=== PATIENT | female | born 1960 | race Caucasian/White ===

== ENCOUNTER 2016-08-12 11:53 | Emergency (ER) | payer OTHER ==
[~2016-08-12] VITALS: Ht 152.4 cm; Wt 52.2 kg
[~2016-08-12 11:53] MED LIST: ALBUTEROL0.09 MG/A2 IH; BACTRIM DS 8001 TA1 PO; CYCLOBENZAPRINE10 MG PO; DARVOCET N 1001 TAB PO; DIAZEPAM2 MG PO; DILANTIN100 MG PO; DONNATAL1 TAB PO; DULCOLAX5 MG PO; EES400 MG PO; FLEXERIL10 MG PO; HYDROCODONE BIT1 T11 PO; IMITREX100 MG PO; KEFLEX500 MG PO; LEVAQUIN750 M1 PO; LEVOFLOXACIN500 MG PO; MEDROL DOSEPAK4 MG PO; MIRALAX POWDER255 GM PO; MOTRIN800 MG PO; NAPROSYN500 MG PO; NORFLEX100 MG PO; PHENERGAN25 M1 PO; PHENOBARBITAL100 M1 PO; PREDNICOT20 MG PO; PREDNISONE20 M1 PO; PREDNISONE20 MG PO; PROAIR HFA8.5 GM INH; PROTONIX40 MG PO; PYRIDIUM200 MG PO; SUMATRIPTAN SU100 M1 PO; TESSALON PERLE100 M1 PO; TOBREX OPHTH S2.5 ML OPH; TRAMADOL HCL50 MG PO; ULTRAM50 MG PO; VIBRAMYCIN100 MG PO; VICO75300 PO; VICODIN 5/500 505 MG PO; ZITHROMAX Z-PA250 MG PO; ZITHROMAX250 MG PO; ZOFRAN ODT4 MG SL; ZOFRAN4 MG PO; ZYRTEC10 M1 PO; ZYRTEC10 MG PO
[2016-08-12 11:57] VITALS: BP 130/85
[2016-08-12] MEDS ORDERED: PERCOCET 325 MG1 TA2 PO (12:00)
[2016-08-12] MEDS ORDERED: 'PARAFON FORTE500 M1 PO (12:46)
[2016-08-12] MEDS ORDERED: NAPROSYN500 MG PO (12:46)
== END 2016-08-12 14:37 | disposition home or self-care (01) ==
LOC: ED 11:53
DX: S30.0XXA Contusion of lower back and pelvis, initial encounter (principal); R03.0 Elevated blood-pressure reading, without diagnosis of hypertension; J45.901 Unspecified asthma with (acute) exacerbation; J44.9 Chronic obstructive pulmonary disease, unspecified; G43.909 Migraine, unspecified, not intractable, without status migrainosus; F17.200 Nicotine dependence, unspecified, uncomplicated; Z98.890 Other specified postprocedural states; Z79.899 Other long term (current) drug therapy; Z88.8 Allergy status to other drugs, medicaments and biological substances; W19.XXXA Unspecified fall, initial encounter; Y93.89 Activity, other specified; Y92.89 Other specified places as the place of occurrence of the external cause; Y99.9 Unspecified external cause status

== ENCOUNTER → 2016-09-26 | Outpatient (CLI) | payer OTHER ==
[~2016-09-26] MED LIST changes: +'PARAFON FORTE500 M1 PO; +PERCOCET 325 MG1 TA2 PO
[2016-09-26 11:12] LABS: EST GLOM FILT AFRICAN AMERICAN > 60 ml/min
== END | disposition home or self-care (01) ==
LOC: LAB 10:47 → CT 11:00
PROVIDERS: Radiology Diagnostic Radiology
DX: M54.5 Low back pain (principal); M79.605 Pain in left leg

== ENCOUNTER → 2017-03-15 | Outpatient (CLI) | payer OTHER | END | disposition home or self-care (01) | LOC: US 07:30 | DX: R74.8 Abnormal levels of other serum enzymes (principal); R79.89 Other specified abnormal findings of blood chemistry ==

== ENCOUNTER 2017-09-25 17:37 | Emergency (ER) | payer OTHER ==
[~2017-09-25] VITALS: Ht 152.4 cm; Wt 52.2 kg
[2017-09-25 17:37] VITALS: BP 132/90
[2017-09-25 18:06] LABS: BASO % 0.2 % (0.0-1.0); EOS # 0.3 10*3/uL (0.0-0.4); EOS % 2.4 % (1.0-4.0); HEMATOCRIT 37.9 % (37.0-47.0); HEMOGLOBIN 12.6 g/dl (12.0-16.0); LYMPH # 3.1 10*3/uL (1.3-4.4); LYMPH % 21.4 % (27.0-41.0); MEAN CELL VOLUME 99.2 fl (81.0-99.0); MEAN CORPUSCULAR HGB CONC 33.2 g/dl (33.0-37.0); MEAN PLATELET VOLUME 9.5 fl (9.6-12.3); MONO # 0.9 10*3/uL (0.1-1.0); MONO % 6.6 % (3.0-9.0); NEUT # 9.9 10*3/uL (2.3-7.9); NEUT % 69.1 % (47.0-73.0); PLATELET COUNT AUTOMATED 293 10*3/uL (130-400); RED BLOOD COUNT 3.82 10*6/uL (4.10-5.10); WHITE BLOOD COUNT 14.3 10*3/uL (4.8-10.8)
[2017-09-25 18:20] LABS: BILIRUBIN NEGATIVE (NEGATIVE); BLOOD NEGATIVE (NEGATIVE); CLARITY CLEAR (CLEAR); COLOR YELLOW (YELLOW); GLUCOSE NEGATIVE (NEGATIVE); KETONE NEGATIVE (NEGATIVE); LEUKO ESTERASE NEGATIVE (NEGATIVE); NITRITE NEGATIVE (NEGATIVE); PH 5.5 (5.0-9.0); UROBILINOGEN 0.2 E.U./dl (0.2-1.0)
[2017-09-25 18:21] LABS: ALBUMIN 3.1 gm/dl (3.1-4.5); ALKALINE PHOSPHATASE 97 U/L (45-117); BUN 17 mg/dl (7-24); CHLORIDE 111 mmol/L (98-107); CREATININE 0.72 mg/dL (0.55-1.02); LIPASE 116 U/L (73-393); POTASSIUM 3.7 mmol/L (3.5-5.1); SGOT/AST 5 IU/L (3-35); SGPT/ALT 17 U/L (12-78); SODIUM 142 mmol/L (136-145); TOTAL PROTEIN 6.5 gm/dL (6.4-8.2)
[2017-09-25 18:29] LABS: WBC 0-2 wbc/hpf (0-5)
[2017-09-25] MEDS ORDERED: ZOFRAN4 MG PO (19:38)
[2017-09-25] MEDS ORDERED: DICYCLOMINE HCL10 MG PO (19:38)
== END 2017-09-25 19:43 | disposition home or self-care (01) ==
LOC: ED 17:37
PROVIDERS: Nurse Practitioner Family
DX: K52.9 Noninfective gastroenteritis and colitis, unspecified (principal); R03.0 Elevated blood-pressure reading, without diagnosis of hypertension; Z88.8 Allergy status to other drugs, medicaments and biological substances; Z79.899 Other long term (current) drug therapy

== ENCOUNTER → 2017-09-29 | Outpatient (CLI) | payer OTHER ==
[~2017-09-29] MED LIST changes: +DICYCLOMINE HCL10 MG PO
== END | disposition home or self-care (01) ==
LOC: LAB 12:04
DX: K52.9 Noninfective gastroenteritis and colitis, unspecified (principal)

== ENCOUNTER 2017-11-21 09:08 | Emergency (ER) | payer OTHER ==
[~2017-11-21] VITALS: Ht 152.4 cm; Wt 52.2 kg
--- NOTE | ~2017-11-21 | EKG ---
[place], [place] ELECTROCARDIOGRAM REPORT NAME: LORIE SCHROEDER UNIT #: [id number] ROOM: DOCTOR: EPIPHANY DRAFT REPORT BIRTHDATE: [birth year] [facility] Test Date: 2017-11-21 Test Time: 09:50:23 Pat Name: LORIE SCHROEDER Department: Room: Gender: F Reshipping Clerk: : 1960 Requested By: PB MANCILLA Order Number: [id number] Reading MD: Rafy Gibbons MD Measurements Intervals [place] Rate: 85 P: 45 NC: 140 QRS: 57 QRSD: 85 T: 39 QT: 371 QTc: 442 Interpretive Statements Sinus rhythm Electronically Signed On 11-22-2017 15:36:35 PDT by Rafy Gibbons MD CM:EKGRPT:ELECTROCARDIOGRAM REPORT [id number] PB MANCILLA EPIPHANY DRAFT REPORT PB MANCILLA
[2017-11-21 09:09] VITALS: BP 161/92
[2017-11-21] MEDS ORDERED: CHLORZOXAZONE500 M2 PO (09:23)
== END 2017-11-21 10:59 | disposition home or self-care (01) ==
LOC: ED 09:08
DX: R20.2 Paresthesia of skin (principal); M25.512 Pain in left shoulder; R03.0 Elevated blood-pressure reading, without diagnosis of hypertension; Z88.8 Allergy status to other drugs, medicaments and biological substances; Z79.899 Other long term (current) drug therapy

== ENCOUNTER 2018-04-25 11:47 | Emergency (ER) | payer OTHER ==
[~2018-04-25] VITALS: Ht 152.4 cm; Wt 50.8 kg
[~2018-04-25 11:47] MED LIST changes: +CHLORZOXAZONE500 M2 PO
[2018-04-25 11:50] VITALS: BP 125/84
[2018-04-25] MEDS ORDERED: PREDNISONE50 MG PO (12:20)
[2018-04-25] MEDS ORDERED: ZITHROMAX250 MG PO (12:20)
== END 2018-04-25 13:51 | disposition home or self-care (01) ==
LOC: ED 11:47
DX: M77.9 Enthesopathy, unspecified (principal); M79.601 Pain in right arm; J20.9 Acute bronchitis, unspecified; M79.602 Pain in left arm; J44.9 Chronic obstructive pulmonary disease, unspecified; G43.909 Migraine, unspecified, not intractable, without status migrainosus; Z88.8 Allergy status to other drugs, medicaments and biological substances; Z79.899 Other long term (current) drug therapy

== ENCOUNTER 2018-12-06 12:19 | Emergency (ER) | payer OTHER ==
[~2018-12-06] VITALS: Wt 45.4 kg
[~2018-12-06 12:19] MED LIST changes: +PREDNISONE50 MG PO
[2018-12-06 12:22] VITALS: BP 121/89
[2018-12-06] MEDS ORDERED: NAPROSYN500 MG PO (13:50)
[2018-12-06] MEDS ORDERED: MEDROL DOSEPAK4 MG PO (13:50)
[2018-12-06] MEDS ORDERED: ROBAXIN500 M1 PO (13:50)
== END 2018-12-06 13:55 | disposition home or self-care (01) ==
LOC: ED 12:19
DX: S39.012A Strain of muscle, fascia and tendon of lower back, initial encounter (principal); S20.229A Contusion of unspecified back wall of thorax, initial encounter; F17.200 Nicotine dependence, unspecified, uncomplicated; Z88.8 Allergy status to other drugs, medicaments and biological substances; Z79.899 Other long term (current) drug therapy; W17.89XA Other fall from one level to another, initial encounter; Y93.89 Activity, other specified; Y92.098 Other place in other non-institutional residence as the place of occurrence of the external cause; Y99.8 Other external cause status

== ENCOUNTER 2018-12-10 06:41 | Emergency (ER) | payer OTHER ==
[~2018-12-10] VITALS: Ht 152.4 cm; Wt 44.5 kg
[~2018-12-10 06:41] MED LIST changes: +ROBAXIN500 M1 PO
[2018-12-10 06:47] VITALS: BP 166/86
== END 2018-12-10 07:54 | disposition home or self-care (01) ==
LOC: ED 06:41
DX: S80.212A Abrasion, left knee, initial encounter (principal); S80.211A Abrasion, right knee, initial encounter; R56.9 Unspecified convulsions; F17.200 Nicotine dependence, unspecified, uncomplicated; G43.909 Migraine, unspecified, not intractable, without status migrainosus; J44.9 Chronic obstructive pulmonary disease, unspecified; Z88.8 Allergy status to other drugs, medicaments and biological substances; Z79.899 Other long term (current) drug therapy; Z79.2 Long term (current) use of antibiotics; Y04.2XXA Assault by strike against or bumped into by another person, initial encounter; Y93.89 Activity, other specified; Y92.89 Other specified places as the place of occurrence of the external cause; Y99.8 Other external cause status

== ENCOUNTER 2019-01-10 13:05 | Emergency (ER) | payer OTHER ==
[~2019-01-10] VITALS: Ht 152.4 cm; Wt 40.8 kg
[2019-01-10 13:05] VITALS: BP 143/100
== END 2019-01-10 14:52 | disposition home or self-care (01) ==
LOC: ED 13:05
DX: S62.521A Displaced fracture of distal phalanx of right thumb, initial encounter for closed fracture (principal); F17.200 Nicotine dependence, unspecified, uncomplicated; Z79.899 Other long term (current) drug therapy; Z88.8 Allergy status to other drugs, medicaments and biological substances; W01.0XXA Fall on same level from slipping, tripping and stumbling without subsequent striking against object, initial encounter; Y93.89 Activity, other specified; Y92.096 Garden or yard of other non-institutional residence as the place of occurrence of the external cause; Y99.8 Other external cause status

== ENCOUNTER 2019-04-22 11:53 | Emergency (ER) | payer OTHER ==
[~2019-04-22] VITALS: Wt 47.6 kg
[2019-04-22 12:09] VITALS: BP 94/59
== END 2019-04-22 13:05 | disposition left against medical advice (07) ==
LOC: ED 11:53
DX: R05 Cough (principal); R53.83 Other fatigue; R50.9 Fever, unspecified; Z53.21 Procedure and treatment not carried out due to patient leaving prior to being seen by health care provider

== ENCOUNTER 2019-05-01 14:47 | Emergency (ER) | payer OTHER ==
[~2019-05-01] VITALS: Ht 152.4 cm; Wt 47.6 kg
[2019-05-01 14:59] VITALS: BP 134/80
== END 2019-05-01 17:35 | disposition home or self-care (01) ==
LOC: ED 14:47
DX: S60.211A Contusion of right wrist, initial encounter (principal); Z79.899 Other long term (current) drug therapy; Z88.8 Allergy status to other drugs, medicaments and biological substances; W22.8XXA Striking against or struck by other objects, initial encounter; Y93.89 Activity, other specified; Y92.89 Other specified places as the place of occurrence of the external cause; Y99.8 Other external cause status

== ENCOUNTER 2019-10-27 15:21 | Emergency (ER) | payer OTHER ==
[~2019-10-27] VITALS: Ht 152.4 cm; Wt 50.8 kg
[2019-10-27 15:35] VITALS: BP 154/91
[2019-10-27] MEDS ORDERED: IMITREX100 MG PO (15:42)
== END 2019-10-27 16:14 | disposition home or self-care (01) ==
LOC: ED 15:21
DX: Z59.9 Problem related to housing and economic circumstances, unspecified (principal); G43.909 Migraine, unspecified, not intractable, without status migrainosus; F17.200 Nicotine dependence, unspecified, uncomplicated; Z86.73 Personal history of transient ischemic attack (TIA), and cerebral infarction without residual deficits; Z88.8 Allergy status to other drugs, medicaments and biological substances; Z79.899 Other long term (current) drug therapy

== ENCOUNTER 2020-01-30 00:49 | Emergency (ER) | payer OTHER ==
[~2020-01-30] VITALS: Ht 152.4 cm; Wt 45.4 kg
[2020-01-30 00:54] VITALS: BP 159/83
== END 2020-01-30 01:54 | disposition home or self-care (01) ==
LOC: ED 00:49
DX: S61.214A Laceration without foreign body of right ring finger without damage to nail, initial encounter (principal); J44.9 Chronic obstructive pulmonary disease, unspecified; G43.909 Migraine, unspecified, not intractable, without status migrainosus; F17.200 Nicotine dependence, unspecified, uncomplicated; Z88.8 Allergy status to other drugs, medicaments and biological substances; Z79.899 Other long term (current) drug therapy; X58.XXXA Exposure to other specified factors, initial encounter; Y93.89 Activity, other specified; Y92.89 Other specified places as the place of occurrence of the external cause; Y99.8 Other external cause status

== ENCOUNTER 2020-02-05 15:08 | Emergency (ER) | payer OTHER ==
[~2020-02-05] VITALS: Ht 152.4 cm; Wt 44.5 kg
[2020-02-05 15:21] VITALS: BP 135/78
== END 2020-02-05 19:03 | disposition left against medical advice (07) ==
LOC: ED 15:08
DX: Z53.29 Procedure and treatment not carried out because of patient's decision for other reasons (principal); Z88.8 Allergy status to other drugs, medicaments and biological substances; Z79.899 Other long term (current) drug therapy

== ENCOUNTER 2020-03-12 21:31 | Emergency (ER) | payer OTHER ==
[~2020-03-12] VITALS: Ht 152.4 cm; Wt 50.3 kg
[2020-03-12 21:38] VITALS: BP 155/82
[2020-03-12] MEDS ORDERED: CEFADROXIL500 M1 PO (21:49)
[2020-03-12] MEDS ORDERED: ULTRAM50 MG PO (21:49)
[2020-03-12] MEDS ORDERED: SEPTDS PO (21:49)
== END 2020-03-12 22:13 | disposition home or self-care (01) ==
LOC: ED 21:31
DX: M79.622 Pain in left upper arm (principal); Z79.899 Other long term (current) drug therapy; Z88.8 Allergy status to other drugs, medicaments and biological substances

== ENCOUNTER → 2020-03-30 | Outpatient (CLI) | payer OTHER ==
[~2020-03-30] MED LIST changes: +CEFADROXIL500 M1 PO; +SEPTDS PO
== END | disposition home or self-care (01) ==
LOC: MAMMO 14:21
PROVIDERS: ATTEND Family Medicine
DX: Z12.31 Encounter for screening mammogram for malignant neoplasm of breast (principal)

== ENCOUNTER 2020-05-08 22:02 | Emergency (ER) | payer OTHER ==
[~2020-05-08] VITALS: Wt 45.4 kg
[2020-05-08 22:12] VITALS: BP 134/72
== END 2020-05-08 22:20 | disposition left against medical advice (07) ==
LOC: ED 22:02
DX: R79.9 Abnormal finding of blood chemistry, unspecified (principal); Z53.21 Procedure and treatment not carried out due to patient leaving prior to being seen by health care provider

== ENCOUNTER 2020-12-30 05:29 | Emergency (ER) | payer OTHER ==
[~2020-12-30] VITALS: Ht 152.4 cm; Wt 47.6 kg
[2020-12-30 05:38] VITALS: BP 178/102
[2020-12-30] MEDS ORDERED: PENICILLIN VK500 MG PO (05:46)
== END 2020-12-30 05:51 | disposition home or self-care (01) ==
LOC: ED 05:29
DX: K02.9 Dental caries, unspecified (principal); Z88.8 Allergy status to other drugs, medicaments and biological substances; Z79.899 Other long term (current) drug therapy; Z98.890 Other specified postprocedural states

== ENCOUNTER 2021-01-24 18:33 | Emergency (ER) | payer OTHER ==
[~2021-01-24] VITALS: Ht 152.4 cm; Wt 46.3 kg
[~2021-01-24 18:33] MED LIST changes: +PENICILLIN VK500 MG PO
[2021-01-24 18:42] VITALS: BP 143/72
== END 2021-01-24 22:31 | disposition left against medical advice (07) ==
LOC: ED 18:33
DX: T15.90XA Foreign body on external eye, part unspecified, unspecified eye, initial encounter (principal); Z53.21 Procedure and treatment not carried out due to patient leaving prior to being seen by health care provider; Y92.89 Other specified places as the place of occurrence of the external cause

== ENCOUNTER 2021-02-17 11:43 | Emergency (ER) | payer OTHER ==
[~2021-02-17] VITALS: Ht 152.4 cm; Wt 46.3 kg
[2021-02-17 11:51] VITALS: BP 129/76
[2021-02-17 12:28] LABS: BASO # 0.1 10*3/uL (0.0-0.1); BASO % 0.6 % (0.0-1.0); EOS # 0.2 10*3/uL (0.0-0.4); EOS % 1.7 % (1.0-4.0); HEMATOCRIT 44.2 % (37.0-47.0); LYMPH # 1.8 10*3/uL (1.3-4.4); LYMPH % 21.1 % (27.0-41.0); MEAN CELL VOLUME 99.8 fl (81.0-99.0); MEAN CORPUSCULAR HGB 32.1 pg (27.0-31.0); MEAN CORPUSCULAR HGB CONC 32.1 g/dl (33.0-37.0); MEAN PLATELET VOLUME 9.6 fl (9.6-12.3); MONO # 0.6 10*3/uL (0.1-1.0); MONO % 6.4 % (3.0-9.0); NEUT # 6.1 10*3/uL (2.3-7.9); NEUT % 70.1 % (47.0-73.0); PLATELET COUNT AUTOMATED 328 10*3/uL (130-400); RED BLOOD COUNT 4.43 10*6/uL (4.10-5.10); RED CELL DISTRI WIDTH 12.7 % (0-14.5); WHITE BLOOD COUNT 8.7 10*3/uL (4.8-10.8)
[2021-02-17 12:30] LABS: BILIRUBIN Negative (Negative); BLOOD Negative (Negative); CLARITY Cloudy (Clear); COLOR Yellow (Yellow); GLUCOSE Negative (Negative); KETONE Negative (Negative); LEUKO ESTERASE 2+ (Negative); NITRITE Negative (Negative); PH 5.5 (4.5-8.0); SPECIFIC GRAVITY 1.015 (1.001-1.030); UROBILINOGEN 0.2 E.U./dl (0.0-1.0)
[2021-02-17 12:38] LABS: URINE AMPHETAMINES > 1000 (1000ng/ml); URINE BARBITURATES < 200 (200ng/ml); URINE BENZODIAZEPINES < 200 (200ng/ml); URINE CANNABINOIDS (THC) < 50 (50ng/ml); URINE COCAINE < 300 (300ng/ml); URINE METHADONE < 300 (300ng/ml); URINE OPIATES < 300 (300ng/ml)
[2021-02-17 12:40] LABS: URINE PHENCYCLIDINE < 25 (25ng/ml)
[2021-02-17 12:44] LABS: ALBUMIN 3.5 gm/dl (3.1-4.5); ALKALINE PHOSPHATASE 78 U/L (45-117); BUN 10 mg/dl (7-24); CHLORIDE 108 mmol/L (98-107); LIPASE 68 U/L (73-393); POTASSIUM 3.9 mmol/L (3.5-5.1); SGOT/AST 10 IU/L (3-35); SGPT/ALT 19 U/L (12-78); SODIUM 141 mmol/L (136-145)
[2021-02-17 12:48] LABS: BACTERIA 3+; EPITHELIAL CELLS 21-30; MUCOUS 1+; WBC TNTC wbc/hpf (0-5)
[2021-02-17] MEDS ORDERED: NAPROXEN250 MG PO (14:06)
[2021-02-17] MEDS ORDERED: CYCLOBENZAPRINE5 M3 PO (14:06)
[2021-02-17] MEDS ORDERED: TYLENOL325 M1 PO (14:06)
[2021-02-17] MEDS ORDERED: ZOFRAN4 MG PO (14:07)
== END 2021-02-17 14:22 | disposition home or self-care (01) ==
LOC: ED 11:43
PROVIDERS: Emergency Medicine
DX: R10.11 Right upper quadrant pain (principal); R11.0 Nausea; J44.9 Chronic obstructive pulmonary disease, unspecified; Z88.8 Allergy status to other drugs, medicaments and biological substances

== ENCOUNTER → 2021-03-17 | Outpatient (CLI) | payer OTHER ==
[~2021-03-17] MED LIST changes: +CYCLOBENZAPRINE5 M3 PO; +NAPROXEN250 MG PO; +TYLENOL325 M1 PO
== END | disposition home or self-care (01) ==
LOC: CT 15:45
PROVIDERS: ATTEND Family Medicine
DX: R10.9 Unspecified abdominal pain (principal)

== ENCOUNTER 2021-03-22 18:34 | Emergency (ER) | payer OTHER ==
[~2021-03-22] VITALS: Ht 152.4 cm; Wt 47.2 kg
[2021-03-22 18:41] VITALS: BP 138/118
== END 2021-03-22 21:34 | disposition left against medical advice (07) ==
LOC: ED 18:34
DX: Z53.21 Procedure and treatment not carried out due to patient leaving prior to being seen by health care provider (principal)

== ENCOUNTER → 2021-06-25 | Outpatient (CLI) | payer OTHER | END | disposition home or self-care (01) | LOC: RAD 08:40 | PROVIDERS: ATTEND Family Medicine | DX: R05.8 Other specified cough (principal) ==

== ENCOUNTER → 2021-10-25 | Outpatient (CLI) | payer OTHER ==
[2021-10-25 13:56] LABS: BASO % 0.6 % (0.0-1.0); EOS # 0.1 10*3/uL (0.0-0.4); EOS % 1.5 % (1.0-4.0); HEMATOCRIT 43.2 % (37.0-47.0); LYMPH # 1.9 10*3/uL (1.3-4.4); LYMPH % 27.9 % (27.0-41.0); MEAN CELL VOLUME 97.5 fl (81.0-99.0); MEAN CORPUSCULAR HGB 32.7 pg (27.0-31.0); MEAN CORPUSCULAR HGB CONC 33.6 g/dl (33.0-37.0); MEAN PLATELET VOLUME 9.3 fl (9.6-12.3); MONO # 0.4 10*3/uL (0.1-1.0); MONO % 6.3 % (3.0-9.0); NEUT # 4.3 10*3/uL (2.3-7.9); NEUT % 63.4 % (47.0-73.0); PLATELET COUNT AUTOMATED 285 10*3/uL (130-400); RED BLOOD COUNT 4.43 10*6/uL (4.10-5.10); RED CELL DISTRI WIDTH 13.1 % (0-14.5); WHITE BLOOD COUNT 6.8 10*3/uL (4.8-10.8)
[2021-10-25 14:23] LABS: BUN 14 mg/dl (7-24); CHLORIDE 109 mmol/L (98-107); POTASSIUM 4.4 mmol/L (3.5-5.1); SODIUM 139 mmol/L (136-145)
[2021-10-25 14:26] LABS: ALKALINE PHOSPHATASE 85 U/L (45-117); CREATININE 0.77 mg/dL (0.55-1.02); SGOT/AST 13 IU/L (3-35); SGPT/ALT 17 U/L (12-78); TOTAL PROTEIN 7.2 gm/dL (6.4-8.2)
== END | disposition home or self-care (01) ==
LOC: LAB 13:40
PROVIDERS: ATTEND Family Medicine
DX: L81.8 Other specified disorders of pigmentation (principal); R07.89 Other chest pain

== ENCOUNTER 2022-04-06 15:27 | Emergency (ER) | payer OTHER ==
[~2022-04-06] VITALS: Ht 152.4 cm; Wt 51.3 kg
== END 2022-04-06 21:00 | disposition left against medical advice (07) ==
LOC: ED 15:27
DX: R05.9 Cough, unspecified (principal); Z53.21 Procedure and treatment not carried out due to patient leaving prior to being seen by health care provider

== ENCOUNTER 2023-02-16 14:58 | Emergency (ER) | payer OTHER ==
[~2023-02-16] VITALS: Ht 152.4 cm; Wt 52.2 kg
[2023-02-16 16:21] LABS: BASO % 0.5 % (0.0-1.0); EOS # 0.3 10*3/uL (0.0-0.4); EOS % 3.6 % (1.0-4.0); HEMATOCRIT 41.7 % (37.0-47.0); LYMPH # 2.8 10*3/uL (1.3-4.4); LYMPH % 37.1 % (27.0-41.0); MEAN CELL VOLUME 97.4 fl (81.0-99.0); MEAN CORPUSCULAR HGB 32.7 pg (27.0-31.0); MEAN CORPUSCULAR HGB CONC 33.6 g/dl (33.0-37.0); MEAN PLATELET VOLUME 9.3 fl (9.6-12.3); MONO # 0.6 10*3/uL (0.1-1.0); MONO % 7.4 % (3.0-9.0); NEUT # 3.9 10*3/uL (2.3-7.9); NEUT % 51.1 % (47.0-73.0); PLATELET COUNT AUTOMATED 283 10*3/uL (130-400); RED BLOOD COUNT 4.28 10*6/uL (4.10-5.10); RED CELL DISTRI WIDTH 12.9 % (0-14.5); WHITE BLOOD COUNT 7.5 10*3/uL (4.8-10.8)
[2023-02-16 16:50] LABS: ALKALINE PHOSPHATASE 74 U/L (46-116); BUN 11 mg/dl (9-23); CHLORIDE 109 mmol/L (98-107); POTASSIUM 3.9 mmol/L (3.4-5.1); SGPT/ALT 10 U/L (5-49); TOTAL PROTEIN 6.5 gm/dL (6.0-8.0)
[2023-02-16 18:13] VITALS: BP 143/78
[2023-02-16] MEDS ORDERED: ONDANSETRON4 MG SL (18:59)
== END 2023-02-16 19:04 | disposition home or self-care (01) ==
LOC: ED 14:58
PROVIDERS: Internal Medicine
DX: R10.31 Right lower quadrant pain (principal); R11.10 Vomiting, unspecified; R19.7 Diarrhea, unspecified; Z88.8 Allergy status to other drugs, medicaments and biological substances; Z79.899 Other long term (current) drug therapy; Z98.890 Other specified postprocedural states

== ENCOUNTER 2023-03-27 17:33 | Emergency (ER) | payer OTHER ==
[~2023-03-27] VITALS: Ht 152.4 cm; Wt 49.9 kg
[~2023-03-27 17:33] MED LIST changes: +ONDANSETRON4 MG SL
[2023-03-27 18:12] VITALS: BP 124/80
[2023-03-27] MEDS ORDERED: SPIRIVA -- 3018 MCG INH (18:19)
[2023-03-27] MEDS ORDERED: PROVENTIL HFA6.7 GM INH (18:20)
[2023-03-27 19:31] LABS: BASO % 0.5 % (0.0-1.0); EOS # 0.1 10*3/uL (0.0-0.4); EOS % 1.8 % (1.0-4.0); HEMATOCRIT 41.5 % (37.0-47.0); LYMPH # 2.2 10*3/uL (1.3-4.4); LYMPH % 29.5 % (27.0-41.0); MEAN CELL VOLUME 99.5 fl (81.0-99.0); MEAN CORPUSCULAR HGB 32.4 pg (27.0-31.0); MEAN CORPUSCULAR HGB CONC 32.5 g/dl (33.0-37.0); MEAN PLATELET VOLUME 9.4 fl (9.6-12.3); MONO # 0.6 10*3/uL (0.1-1.0); MONO % 7.4 % (3.0-9.0); NEUT # 4.5 10*3/uL (2.3-7.9); NEUT % 60.7 % (47.0-73.0); PLATELET COUNT AUTOMATED 257 10*3/uL (130-400); RED BLOOD COUNT 4.17 10*6/uL (4.10-5.10); RED CELL DISTRI WIDTH 12.9 % (0-14.5); WHITE BLOOD COUNT 7.4 10*3/uL (4.8-10.8)
[2023-03-27 19:58] LABS: ALKALINE PHOSPHATASE 71 U/L (46-116); BUN 8 mg/dl (9-23); CHLORIDE 108 mmol/L (98-107); LIPASE 30 U/L (12-53); POTASSIUM 4.3 mmol/L (3.4-5.1); SGPT/ALT 8 U/L (5-49); TOTAL PROTEIN 6.4 gm/dL (6.0-8.0)
[2023-03-27] MEDS ORDERED: PREDNISONE20 M1 PO (21:17)
== END 2023-03-27 21:52 | disposition home or self-care (01) ==
LOC: ED 17:33
PROVIDERS: Internal Medicine
DX: M19.041 Primary osteoarthritis, right hand (principal); J44.9 Chronic obstructive pulmonary disease, unspecified; G43.909 Migraine, unspecified, not intractable, without status migrainosus; Z88.8 Allergy status to other drugs, medicaments and biological substances; Z98.890 Other specified postprocedural states; F17.210 Nicotine dependence, cigarettes, uncomplicated